=== PATIENT | female | born 1990 | race Caucasian/White ===

== ENCOUNTER → 2019-08-05 | Outpatient (CLI) | payer OTHER ==
--- NOTE | 2019-08-05 19:24 | DIREP ---
PROCEDURE:XRAY RIBS 3VWS-RT COMPARISON:None. INDICATIONS:BACK PAIN FINDINGS: RIBS:No fracture. An internal fixation plate is noted fixating the mid right clavicle. OTHER:No additional findings. CONCLUSION: 1. No rib fracture or pneumothorax noted. Dictated by: Josiah Sepulveda M.D. on 08/05/2019 at 07:22 PM
--- NOTE | 2019-08-05 19:25 | DIREP ---
PROCEDURE:XRAY SHOULDER MIN 2 VWS-RT COMPARISON:None. INDICATIONS:BACK PAIN FINDINGS: BONES:No fracture is seen. An internal fixation plate fixating the mid right clavicle is noted. JOINTS:Normal glenohumeral and acromioclavicular joints. No evidence for dislocation. SOFT TISSUES:Normal. OTHER:Normal. CONCLUSION: 1. No fracture dislocation demonstrated. Status post ORIF mid right clavicle. Dictated by: Josiah Sepulveda M.D. on 08/05/2019 at 07:23 PM
== END | disposition home or self-care (01) ==
LOC: RAD 18:41
PROVIDERS: ATTEND Nurse Practitioner Family
DX: M54.9 Dorsalgia, unspecified (principal)
CPT/HCPCS: 71100-RT; 73030-RT